=== PATIENT | male | born 1950 | race Caucasian/White ===

== ENCOUNTER 2023-04-16 10:57 | Outpatient (AMB) | payer OTHER, SELFPAY ==
[2023-04-16 10:57] VITALS: BP 122/86; PULSE 62; O2SAT 98; BMI 20.1
--- NOTE | 2023-04-16 10:57 | MHC.OFFVIS ---
Intake Vital Signs 04/16/23 10:57 Height 6 ft Weight 148 lb 4 oz BMI 20.1 BP 122/86 Blood Pressure Location Lt brachial Position Sitting Pulse 62 Pulse Source Pulse Oximeter Pulse Oximetry (%) 98 Oxygen Delivery Method Room Air Intake Visit Reasons: NPV-Tremors/Cerebrovascular Disease-lvm Intake Note: Pt presents as a NPV for tremors/cerebrovasular disease. Pt states he is also having tremors that started after his blood clot. [employer] Required: No Allergies atorvastatin Allergy (Unknown, Verified 04/16/23 08:35) Unknown ether Allergy (Unknown, Verified 04/16/23 08:35) Vomiting pollen Allergy (Unknown, Uncoded 04/16/23 08:35) Unknown Medication List - Last Reconciled 04/16/23 by Lorenza Persaud MD carbidopa-levodopa 25-100 mg (Sinemet) 1 tab PO BID clopidogrel 75 mg PO DAILY lisinopril 10 mg PO DAILY rosuvastatin 5 mg PO 3XW HPI HPI Comments History of Present Illness Details 72y/o right handed male comes for evaluation of tremors and follow up after a CVA. He started noticing tremors in his UE -since his CVA in 2020.The tremors are mostly in his right UE and occasionally in his left. The tremors are mostly at rest. He also reports slowing of movements on his right. He denies any speech issues. He frequently drops his utensils and cups. No difficulty dressing or showering. He reports festination. 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.He is on plavix 75mg qd and rosuvostatin 5mg qd [facility] Medical History (Updated 04/16/23 @ 11:43 by Lorenza Persaud MD) Coarse tremors CVA (cerebral vascular accident) Ex-smoker Hepatitis C HTN (hypertension) Hypersomnia Snoring Surgical History Hx of LASIK Hx of tonsillectomy Family History Father Pancreatic cancer Myocardial infarction Diabetes Heart disease Mother Atrial fibrillation COPD (chronic obstructive pulmonary disease) Heart disease Social History (Updated 04/16/23 @ 11:04 by Soraida Crystal CMA) Alcohol intake: never Patient Tobacco Use Status: Former Tobacco user Substance Use Type: Marijuana Review of Systems Const Reports difficulty sleeping and Reports weakness ENT Reports hearing loss Musc Reports arthralgias Neuro Reports tremor(s) and Reports weakness Physical Exam Vital Signs: Last Vital Signs Pulse 62 04/16/23 10:57 BP 122/86 04/16/23 10:57 Pulse Ox 98 04/16/23 10:57 Oxygen Delivery Method Room Air 04/16/23 10:57 BMI result Body Mass Index 20.1 Const Orientation/consciousness: patient oriented x3 Eyes Pupils: Equal, round and reactive pupils present Neuro Other: Decreased facial expression and blink Left facial mild UMN weakness Triston rest tremors R>L UE intermittent FFM< decreased triston R>L Foot taps decreased triston R>L Cog wheel rigidity 1 right UE Motor power 5/5 in all except Left UE midl weakness Voice hypophonia Gait stooped General: patient oriented x3 and moves all extremities Cranial nerves: Yes Facial sensation intact/muscles of mastication intact, Yes Equal, round and reactive pupils present, Yes Bilaterally intact EOM present, Yes Nystagmus not present, Yes Midline tongue present and Yes Ability to bilaterally elevate shoulders present Cognition (Neuro): normal cognition Deep tendon reflexes (DTR's): Right triceps reflex intensity grade: 1+, Left triceps reflex intensity grade: 1+, Rt Biceps (C5, C6): 1+, Left biceps reflex intensity grade: 1+, Right brachioradialis reflex intensity grade: 1+, Left brachioradialis reflex intensity grade: 1+, Right patellar reflex intensity grade: 1+ and Left patellar reflex intensity grade: 1+ Coordination: [id number] test normal Psych Appearance: grossly normal Assessment & Plan Assessment & Plan (1) Coarse tremors: Comment: ? parkinsons Code(s): G25.2 - Other specified forms of tremor (2) CVA (cerebral vascular accident): Comment: on clopidogrel 75mg qd, rosuvostatin 5mg Code(s): I63.9 - Cerebral infarction, unspecified (3) Snoring: Code(s): R06.83 - Snoring (4) Hypersomnia: Code(s): G47.10 - Hypersomnia, unspecified Plan I will trial him on carbidopa /levodopa 25/100 1 tab bid Home sleep test LDL goal below 70 continue clopidogrel 75mg qd reviewed MRI results Orders: Orders RT home sleep study Today G47.10 - Hypersomnia, unspecified, R06.83 - Snoring Medications: New carbidopa-levodopa 25-100 mg (Sinemet) 1 tab PO BID 60 tabs 2RF Coding Level of Care Code New Pt Level 4 (57411) Diagnoses Coarse tremors G25.2 CVA (cerebral vascular accident) I63.9 Snoring R06.83 Hypersomnia G47.10
== END 2023-04-16 11:50 | disposition home or self-care (01) ==
PROVIDERS: Visit Provider Psychiatry & Neurology Neurology
DX: G25.2 Other specified forms of tremor (principal); I69.398 Other sequelae of cerebral infarction; R06.83 Snoring; G47.10 Hypersomnia, unspecified
CPT/HCPCS: 99204

== ENCOUNTER → 2023-04-16 10:57 | Outpatient (BNVA) | payer OTHER, SELFPAY | PROVIDERS: Visit Provider Psychiatry & Neurology Neurology ==

== ENCOUNTER → 2023-05-28 14:37 | Outpatient (REF) | payer OTHER, SELFPAY | LOC: HO.SL 14:37 | PROVIDERS: PCP Internal Medicine; Visit Provider Psychiatry & Neurology Neurology | DX: G47.33 Obstructive sleep apnea (adult) (pediatric) (principal); G47.10 Hypersomnia, unspecified; R06.83 Snoring | CPT/HCPCS: 95806 ==

== ENCOUNTER → 2023-05-28 14:55 | Outpatient (BNV) | payer OTHER, SELFPAY | PROVIDERS: PCP Internal Medicine; Visit Provider Psychiatry & Neurology Neurology | DX: G47.33 Obstructive sleep apnea (adult) (pediatric) (principal) | CPT/HCPCS: 95806 ==

== ENCOUNTER 2023-06-18 09:36 | Outpatient (AMB) | payer OTHER, SELFPAY ==
--- NOTE | 2023-06-18 09:39 | A.OFFVIS_ITS ---
Intake Vital Signs 06/18/23 09:40 Height 6 ft Weight 213 lb 8 oz BMI 29.0 BP 116/82 Blood Pressure Location Lt brachial Position Sitting Pulse 82 Pulse Source Pulse Oximeter Pulse Oximetry (%) 97 Oxygen Delivery Method Room Air Intake Visit Reasons: 2m follow UPCerebrovascular Disease-CONFIR Intake Note: Pt presents to the office today for a 2 month follow up for cerebrovascular disease. Pt states he has not been able to take the carbidopa medication because he states it interacted with his other meds. Pt states he is more tired. Allergies atorvastatin Allergy (Unknown, Verified 06/18/23 09:41) Unknown ether Allergy (Unknown, Verified 06/18/23 09:41) Vomiting pollen Allergy (Unknown, Uncoded 06/18/23 09:41) Unknown HPI HPI Comments History of Present Illness Details 73y/o right handed male comes for follow up of tremors and follow up after a CVA.He could not tolerate carbidopa/levodopa . He stopped as he had cramps HOme sleep test- 06/09/23 AHI 17 Supine AHI 33 O2 alaina 81 %. He is concerned about CPAP because of clautrophobia and anxiety Previous history- He started noticing tremors in his UE -since his CVA in 2020.The tremors are mostly in his right UE and occasionally in his left. The tremors are mostly at rest. He also reports slowing of movements on his right. He denies any speech issues. He frequently drops his utensils and cups. No difficulty dressing or showering. He reports festination. 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.He is on plavix 75mg qd and rosuvostatin 5mg qd [facility] Medical History (Updated 06/18/23 @ 09:56 by Lorenza Persaud MD) Obstructive sleep apnea Hypersomnia Snoring Coarse tremors CVA (cerebral vascular accident) Hepatitis C Ex-smoker HTN (hypertension) Surgical History Hx of LASIK Hx of tonsillectomy Family History Father Pancreatic cancer Myocardial infarction Diabetes Heart disease Mother Atrial fibrillation COPD (chronic obstructive pulmonary disease) Heart disease Social History Alcohol intake: never Patient Tobacco Use Status: Former Tobacco user Substance Use Type: Marijuana Physical Exam Vital Signs: Last Vital Signs Pulse 82 06/18/23 09:40 BP 116/82 06/18/23 09:40 Pulse Ox 97 06/18/23 09:40 Oxygen Delivery Method Room Air 06/18/23 09:40 BMI result Body Mass Index 29.0 Const Orientation/consciousness: patient oriented x3 Eyes Pupils: Equal, round and reactive pupils present Neuro Other: Decreased facial expression and blink Left facial mild UMN weakness Triston rest tremors R>L UE intermittent FFM< decreased triston R>L Foot taps decreased triston R>L Cog wheel rigidity 1 right UE Motor power 5/5 in all except Left UE midl weakness Voice hypophonia Gait stooped General: patient oriented x3 and moves all extremities Cranial nerves: Yes Facial sensation intact/muscles of mastication intact, Yes Equal, round and reactive pupils present, Yes Bilaterally intact EOM present, Yes Nystagmus not present, Yes Midline tongue present and Yes Ability to bilaterally elevate shoulders present Cognition (Neuro): normal cognition Coordination: [id number] test normal Psych Appearance: grossly normal Assessment & Plan Assessment & Plan (1) Coarse tremors: Comment: ? parkinsons Code(s): G25.2 - Other specified forms of tremor (2) CVA (cerebral vascular accident): Comment: on clopidogrel 75mg qd, rosuvostatin 5mg Code(s): I63.9 - Cerebral infarction, unspecified (3) Obstructive sleep apnea: Comment: AHI 17 SUpine AHI 33 O2 alaina 81% Code(s): G47.33 - Obstructive sleep apnea (adult) (pediatric) Plan Trial CPAP 5-20 cm of water Home sleep test results discussed LDL goal below 70 continue clopidogrel 75mg qd reviewed MRI results Coding Level of Care Code Est Pt Level 4 (05697) Diagnoses Coarse tremors G25.2 CVA (cerebral vascular accident) I63.9 Obstructive sleep apnea G47.33
[2023-06-18 09:40] VITALS: BP 116/82; PULSE 82; O2SAT 97; BMI 29.0
== END 2023-06-18 09:59 | disposition home or self-care (01) ==
PROVIDERS: PCP Internal Medicine; Visit Provider Psychiatry & Neurology Neurology
DX: I69.354 Hemiplegia and hemiparesis following cerebral infarction affecting left non-dominant side (principal); I69.398 Other sequelae of cerebral infarction; G25.2 Other specified forms of tremor; G47.33 Obstructive sleep apnea (adult) (pediatric)
CPT/HCPCS: 99214

== ENCOUNTER → 2023-06-18 09:36 | Outpatient (BNVA) | payer OTHER, SELFPAY | PROVIDERS: PCP Internal Medicine; Visit Provider Psychiatry & Neurology Neurology | DX: G47.10 Hypersomnia, unspecified (principal); R06.83 Snoring; G25.2 Other specified forms of tremor; I63.9 Cerebral infarction, unspecified ==